=== PATIENT | female | born 1950 | race Caucasian/White ===

== ENCOUNTER 2020-12-27 17:19 | Emergency (ER) | payer OTHER, MEDICAID ==
[~2020-12-27] VITALS: Ht 144.8 cm; Wt 63.5 kg
[2020-12-27 17:23] VITALS: BP 118/56
[2020-12-27] MEDS ORDERED: ONDANSETRON 4 MG/2 ML VIAL IVP ONE (17:40)
[2020-12-27] MEDS ORDERED: NACL 0.9% 1,000 ML IV SCH (17:40)
[2020-12-27] MEDS ORDERED: MORPHINE SULFATE 4 MG/ML SYR IVP ONE (17:40)
[2020-12-27] MEDS ORDERED: PANTOPRAZOLE 40 MG INJ VIAL IVP ONE (17:45)
[2020-12-27] MEDS ORDERED: cefTRIAXone 1,000 MG VIAL ONE (17:48)
[2020-12-27 18:03] LABS: BASOPHILS % (AUTO) 1.2 % (0.0-2.0); EOSINOPHILS # (AUTO) 0.1 K/uL (0-0.4); EOSINOPHILS % (AUTO) 1.6 % (0.0-4.0); HEMATOCRIT 28.8 % (36-48); HEMOGLOBIN 9.7 g/dL (12.0-16.0); LYMPHOCYTES # (AUTO) 0.6 K/uL (2.5-16.5); LYMPHOCYTES % (AUTO) 16.3 % (20.5-51.1); MEAN CORPUSCULAR HEMOGLOBIN 35 pg (27-31); MEAN CORPUSCULAR HGB CONC 34 g/dL (33-37); MEAN CORPUSCULAR VOLUME 103.3 fL (80-94); MONOCYTES # (AUTO) 0.4 K/uL (0.8-1.0); MONOCYTES % (AUTO) 9.9 % (1.7-9.3); NEUTROPHILS # (AUTO) 2.7 K/uL (1.8-7.7); PLATELET COUNT (AUTO) 115 K/uL (140-450); RED BLOOD CELL COUNT(AUTO) 2.79 MIL/uL (4.20-5.40); RED CELL DISTRIBUTION WIDTH 16.2 % (11.6-13.7); WHITE BLOOD COUNT (AUTO) 3.8 K/uL (4.8-10.8)
[2020-12-27] MEDS ORDERED: HYDROmorphone PFS 2 MG/ML SYR IVP ONE ×3 (18:15→19:50)
[2020-12-27] MEDS ORDERED: SEN30 PO (18:24)
[2020-12-27] MEDS ORDERED: ACET-2619 PO (18:24)
[2020-12-27] MEDS ORDERED: ASPI-1822 PO (18:24)
[2020-12-27] MEDS ORDERED: HYDR-1100 PO (18:24)
[2020-12-27] MEDS ORDERED: NEP PO (18:24)
[2020-12-27 18:31] LABS: ALBUMIN 3.4 g/dL (3.4-5.0); ANION GAP 13.4 (8-16); CARBON DIOXIDE 30.6 mmol/L (21-32); CREATININE 3.7 mg/dL (0.6-1.3); TOTAL BILIRUBIN 0.7 mg/dL (0.0-1.0)
[2020-12-27 21:06] LABS: HEMATOCRIT 23.5 % (36-48); HEMOGLOBIN 7.9 g/dL (12.0-16.0)
[2020-12-28 00:40] VITALS: BP 117/50
== END 2020-12-28 00:48 | disposition designated cancer center or children's hospital (05) ==
LOC: MED 17:19
DX: K66.1 Hemoperitoneum (principal); D61.818 Other pancytopenia; R10.9 Unspecified abdominal pain; I12.9 Hypertensive chronic kidney disease with stage 1 through stage 4 chronic kidney disease, or unspecified chronic kidney disease; E11.22 Type 2 diabetes mellitus with diabetic chronic kidney disease; N18.9 Chronic kidney disease, unspecified; Z79.899 Other long term (current) drug therapy; Z20.822 Contact with and (suspected) exposure to COVID-19
CPT/HCPCS: 36415; 71045; 74176; 80053; 82150; 83605; 83690; 84484; 85018; 85025; 85610; 85730; 86886; 86900; 86901; 87040; 87426; 93005; 96361; 96365; 96375; 96376; 99285; C1758; C9113; J0696; J1170; J2270; J2405; J7060